=== PATIENT | male | born 1995 | race Caucasian/White ===

== ENCOUNTER 2024-07-30 20:03 | Emergency (ER) | payer BC ==
--- NOTE | 2024-07-30 20:15 | ERPHSYRPT ---
- History of Present Illness Time Seen by Provider: 07/30/24 20:07 Source: patient Exam Limitations: no limitations Physician History: Pt got a fishing hook embedded in his left index finger while fishing in his uncle[place] pond about 30 minutes ago. Pt is refusing a tetanus shot. Allergies/Adverse Reactions: No Known Drug Allergies Allergy (Verified 07/30/24 20:16) - Review of Systems Musculoskeletal: Other (fish hook embeded in left index finger) - Nursing Vital Signs Nursing Vital Signs: Initial Vital Signs Temperature 99.2 F 07/30/24 20:07 Pulse Rate 95 H 07/30/24 20:07 Blood Pressure 145/105 07/30/24 20:07 O2 Sat by Pulse Oximetry 98 07/30/24 20:07 Pain Scale Pain Intensity 0 - Physical Exam General Appearance: alert Skin Exam: other (fish hook embeded in dorsal aspect of proximal phalynx of left index finger) Ordered Tests: Active Orders 24 hr Category Date Time Status Wound Care STAT Care 07/30/24 20:13 Active Medication Summary Discontinued Medications Generic Name Dose Route Start Last Admin Trade Name Yinka PRN Reason Stop Dose Admin Cephalexin HCl 500 mg 07/30/24 20:14 Cephalexin Mh500 Mg Capsule PO 07/30/24 20:15 STAT ONE Cephalexin HCl Confirm 07/30/24 20:22 Cephalexin Mh500 Mg Capsule Administered 07/30/24 20:23 Dose 500 mg .ROUTE .STK-MED ONE Lidocaine HCl 5 ml 07/30/24 20:13 07/30/24 20:19 Lidocaine Hcl 1% 20 Ml Mdv 20 Ml Ml IJ 07/30/24 20:14 5 ml STAT ONE Administration Lidocaine HCl Confirm 07/30/24 20:16 Lidocaine Hcl 1% 20 Ml Mdv 20 Ml Ml Administered 07/30/24 20:17 Dose 3 ml .ROUTE .STK-MED ONE - Progress Progress: improved Progress Note: 07/30/24 20:24 Left index finger proximal phalanx dorsal aspect injected with 1% lidocaine, cleansed with hibiclens, irrigated with sterile water and a sterile 18 ga needle was placed over the fish hook sylvie and pliers backed out the fish hook. Counseled pt/family regarding: diagnosis - Departure Departure Disposition: Home Clinical Impression: fish hook removal left index finger Condition: Stable Critical Care Time: No Instructions: Removal of Foreign Body in Skin Additional Instructions: Follow up with private doctor tomorrow. Apply neosporin & bandage to left index finger wound daily for the next 7 days. Prescriptions: Cephalexin Mh 500 mg [Keflex 500 mg] 500 mg PO TID #20 cap
[2024-07-30 20:16] VITALS: BP 145/105; PULSE 95; TEMP 99.2; O2SAT 98
[2024-07-30] MEDS ORDERED: XYLOCAINE 1% HCL 20 ML MDV ONE (20:16)
[2024-07-30] MEDS: XYLOCAINE 1% HCL 20 ML MDV IJ ONE (20:19)
[2024-07-30] MEDS ORDERED: KEFLEX 500 MG ONE (20:22)
[2024-07-30] MEDS: KEFLEX 500 MG PO ONE (20:23)
[2024-07-30] MEDS ORDERED: BACIGUENT PACKET ONE (20:26)
[2024-07-30] MEDS: BACIGUENT PACKET TP ONE (20:28)
== END 2024-07-30 20:48 | disposition home or self-care (01) ==
LOC: ED 20:03
DX: S61.241A Puncture wound with foreign body of left index finger without damage to nail, initial encounter (principal); W26.8XXA Contact with other sharp object(s), not elsewhere classified, initial encounter; W45.8XXA Other foreign body or object entering through skin, initial encounter; Z79.899 Other long term (current) drug therapy
CPT/HCPCS: 96372; 99283; A9270-GY